=== PATIENT | female | born 1955 | race Caucasian/White ===

== ENCOUNTER 2016-07-19 14:15 | Inpatient (IN) | payer MEDICAID, OTHER ==
[~2016-07-19] VITALS: Ht 171.4 cm; Wt 80.6 kg
[2016-07-19] MEDS ORDERED: SODIUM CHLORIDE 0.9% 1,000 ML ONE (15:50)
[2016-07-19] MEDS ORDERED: SODIUM CHLORIDE 0.9% 2,000 ML ONE (15:50)
[2016-07-19] MEDS ORDERED: DEXTROSE 50% SYRINGE 50 ML IV PRN ×2 (16:00→18:05)
[2016-07-19] MEDS ORDERED: INSULIN DRIP 1 UNIT/ML 100 ML IV SCH ×2 (16:00→18:05)
[2016-07-19 21:00] VITALS: BP_SYST 145; BP_SYST 150; BP_SYST 156; RESP 16; TEMP 97.1
[2016-07-19 21:15] VITALS: BP_SYST 154; RESP 14
[2016-07-19] MEDS ORDERED: LORAZEPAM 2 MG/ML VIAL ONE (21:15)
[2016-07-19] MEDS: LORAZEPAM 2 MG/ML VIAL IV PRN (21:17)
[2016-07-19] MEDS: SODIUM CHLORIDE 0.9% 1,000 ML IV SCH (21:27)
[2016-07-19 21:30] VITALS: BP_SYST 147; RESP 15
[2016-07-19 21:32] VITALS: BMI 27.4
[2016-07-19] MEDS: VENLAFAXINE XR 75 MG CAP PO SCH (21:39)
[2016-07-19] MEDS: FAMOTIDINE 20 MG TAB PO SCH (21:39)
[2016-07-19 22:00] VITALS: BP_SYST 125; RESP 17
[2016-07-19 23:00] VITALS: BP_SYST 131; RESP 22
[2016-07-20] VITALS (18 sets, daily range): BP systolic 107–178; RESP 12–21; TEMP 97.4–98.5; Ht 171.4 cm; Wt 80.6 kg
[2016-07-20] MEDS ORDERED: MISSING DOSE XX ONE (00:15)
[2016-07-20] MEDS: LORAZEPAM 2 MG/ML VIAL IV PRN ×2 (01:41→16:59)
[2016-07-20] MEDS: SODIUM CHLORIDE 0.9% 1,000 ML IV SCH (06:29)
[2016-07-20] MEDS: FAMOTIDINE 20 MG TAB PO SCH ×2 (08:37→20:07)
[2016-07-20] MEDS: VENLAFAXINE XR 75 MG CAP PO SCH (08:37)
[2016-07-20] MEDS ORDERED: LEVEMIR INSULIN SUBQ SCH (09:20)
[2016-07-20] MEDS ORDERED: DEXTROSE 50% SYRINGE 50 ML IV PRN (09:20)
[2016-07-20] MEDS ORDERED: GLUCAGON 1 MG VIAL IM PRN (09:20)
[2016-07-20] MEDS ORDERED: INSULIN DRIP 1 UNIT/ML 100 ML IV SCH (09:25)
[2016-07-20] MEDS ORDERED: KCL CR 10 MEQ CAP PO ONE (09:25)
[2016-07-20] MEDS: ACETAMINOPHEN 325 MG TAB PO PRN ×2 (11:13→20:07)
[2016-07-20] MEDS ORDERED: FLUCONAZOLE 150 MG TAB PO ONE (13:00)
[2016-07-20] MEDS: LISINOPRIL 20 MG TAB PO SCH (17:40)
[2016-07-20] MEDS: LEVEMIR INSULIN SUBQ SCH (20:42)
[2016-07-21 03:00] VITALS: BP_SYST 142; RESP 18; TEMP 97.6
[2016-07-21 07:28] VITALS: BP_SYST 150; RESP 16; TEMP 97.4
[2016-07-21] MEDS: LEVEMIR INSULIN SUBQ SCH ×2 (09:43→21:53)
[2016-07-21] MEDS: VENLAFAXINE XR 75 MG CAP PO SCH (09:44)
[2016-07-21] MEDS: LISINOPRIL 20 MG TAB PO SCH (09:44)
[2016-07-21] MEDS: FAMOTIDINE 20 MG TAB PO SCH ×2 (09:44→21:52)
[2016-07-21] MEDS: MAGNESIUM SULF 1 GM/100 ML 100 ML IV SCH ×2 (10:41→12:11)
[2016-07-21] MEDS: ACETAMINOPHEN 325 MG TAB PO PRN (10:42)
[2016-07-21 11:02] VITALS: BP_SYST 162; RESP 16; TEMP 98
[2016-07-21] MEDS: amLODIPine 5 MG TAB PO SCH (12:29)
[2016-07-21 15:15] VITALS: BP_SYST 140; RESP 18; TEMP 98
[2016-07-21 19:24] VITALS: BP_SYST 118; RESP 18; TEMP 98.1
[2016-07-21 23:40] VITALS: BP_SYST 126; RESP 20; TEMP 98.1
[2016-07-22 03:52] VITALS: BP_SYST 126; RESP 18; TEMP 97.9
[2016-07-22 07:39] VITALS: BP_SYST 160; RESP 16; TEMP 97.3
[2016-07-22] MEDS: FAMOTIDINE 20 MG TAB PO SCH ×2 (09:14→22:14)
[2016-07-22] MEDS: LEVEMIR INSULIN SUBQ SCH ×2 (09:14→22:27)
[2016-07-22] MEDS: VENLAFAXINE XR 75 MG CAP PO SCH (09:14)
[2016-07-22] MEDS: LISINOPRIL 20 MG TAB PO SCH (09:14)
[2016-07-22] MEDS: amLODIPine 5 MG TAB PO SCH (09:14)
[2016-07-22] MEDS: ACETAMINOPHEN 325 MG TAB PO PRN ×2 (10:04→22:26)
[2016-07-22 11:21] VITALS: BP_SYST 158; RESP 18
[2016-07-22 14:45] VITALS: BP_SYST 134; RESP 16; TEMP 98
[2016-07-22 19:50] VITALS: BP_SYST 132; RESP 18; TEMP 97.8
[2016-07-23] MEDS: ACETAMINOPHEN 325 MG TAB PO PRN (03:35)
[2016-07-23 07:45] VITALS: BP_SYST 160; RESP 18; TEMP 96
[2016-07-23] MEDS: VENLAFAXINE XR 75 MG CAP PO SCH (08:31)
[2016-07-23] MEDS: FAMOTIDINE 20 MG TAB PO SCH ×2 (08:31→21:23)
[2016-07-23] MEDS: amLODIPine 5 MG TAB PO SCH (08:31)
[2016-07-23] MEDS: LISINOPRIL 20 MG TAB PO SCH (08:31)
[2016-07-23] MEDS: LEVEMIR INSULIN SUBQ SCH ×2 (08:32→21:23)
[2016-07-23 10:33] VITALS: BP_SYST 136; RESP 18; TEMP 97.1
[2016-07-23] MEDS ORDERED: FLUCONAZOLE 150 MG TAB PO ONE (17:20)
[2016-07-23 17:26] VITALS: BP_SYST 124; TEMP 97.4
[2016-07-23 21:09] VITALS: BP_SYST 138; RESP 18; TEMP 98.1
[2016-07-24] VITALS (7 sets, daily range): BP systolic 128–168; RESP 16–18; TEMP 97.1–98.7
[2016-07-24] MEDS: ACETAMINOPHEN 325 MG TAB PO PRN ×2 (01:03→05:51)
[2016-07-24] MEDS: LORAZEPAM 2 MG/ML VIAL IV PRN (03:23)
[2016-07-24] MEDS: FAMOTIDINE 20 MG TAB PO SCH ×2 (08:29→21:21)
[2016-07-24] MEDS: amLODIPine 5 MG TAB PO SCH (08:29)
[2016-07-24] MEDS: LEVEMIR INSULIN SUBQ SCH ×2 (08:29→21:22)
[2016-07-24] MEDS: VENLAFAXINE XR 75 MG CAP PO SCH (08:29)
[2016-07-24] MEDS: LISINOPRIL 20 MG TAB PO SCH (08:29)
[2016-07-24] MEDS: ALPRAZOLAM 0.25 MG TAB PO PRN ×2 (12:28→18:13)
[2016-07-24] MEDS: NICOTINE 21 MG/24 HR TRANSDERM SCH (12:28)
[2016-07-24] MEDS ORDERED: hydrOXYzine 25 MG TAB PO PRN (17:30)
[2016-07-24] MEDS ORDERED: MISSING DOSE XX ONE (17:45)
[2016-07-25 02:36] VITALS: BP_SYST 132; RESP 18; TEMP 97.3
[2016-07-25] MEDS ORDERED: POLYETHYLENE GLYCOL 17 GM PACKET PO PRN (06:15)
[2016-07-25 08:30] VITALS: BP_SYST 140; RESP 18; TEMP 97.1
[2016-07-25] MEDS: LISINOPRIL 20 MG TAB PO SCH (09:29)
[2016-07-25] MEDS: FAMOTIDINE 20 MG TAB PO SCH (09:29)
[2016-07-25] MEDS: amLODIPine 5 MG TAB PO SCH (09:29)
[2016-07-25] MEDS: VENLAFAXINE XR 75 MG CAP PO SCH (09:29)
[2016-07-25] MEDS: ALPRAZOLAM 0.25 MG TAB PO PRN (09:29)
[2016-07-25] MEDS: NICOTINE 21 MG/24 HR TRANSDERM SCH (09:30)
[2016-07-25] MEDS: LEVEMIR INSULIN SUBQ SCH (09:30)
[2016-07-25 12:31] VITALS: BP_SYST 152; RESP 18; TEMP 98.4
[2016-07-25 14:58] VITALS: BP_SYST 150; RESP 18; TEMP 97.9
[2016-07-25] MEDS: ACETAMINOPHEN 325 MG TAB PO PRN (15:59)
[2016-07-25 16:12] VITALS: BP_SYST 150; RESP 18; TEMP 97.9
[2016-07-25 19:50] VITALS: BP_SYST 144; RESP 20; TEMP 98.1
== END 2016-07-25 21:27 | DRG 637 ==
LOC: ENRESERVDT → ENRESERVTM → CANRESERV → ER 14:15 → EMR 16:57 → ENPENDDIS 17:56 → OBSVTOIN 17:56 → CCU 20:35 → 4NT 07-20 21:55
PROVIDERS: ADMIT Family Medicine Addiction Medicine; ATTEND Family Medicine Addiction Medicine
CPT/HCPCS: 36415; 71010; 80053; 81001; 82553; 82947; 83036; 83735; 84484; 85025; 85379; 85610; 93005; 96361; 96365; 99222; 99231; 99232; 99239